=== PATIENT | female | born 1950 | race Caucasian/White ===

== ENCOUNTER 2016-05-20 07:43 | Day surgery (SDC) | payer OTHER ==
[~2016-05-20 07:43] MED LIST: ACETAMINOPHEN 1000MG/100 ML PREMIX IV ONE
[2016-05-20] MEDS ORDERED: ROCURONIUM BROMIDE 50MG/5ML VIAL IV ONE (15:34)
[2016-05-20] MEDS ORDERED: LIDOCAINE 2% MDV (20MG/ML) 20ML VIAL IV ONE (15:34)
[2016-05-20] MEDS ORDERED: NEOSTIGMINE 1 MG/1 ML,10ML VIAL IV ONE (15:34)
[2016-05-20] MEDS ORDERED: ONDANSETRON HCL IV 4 MG/2 ML VIAL IVP ONE (15:34)
[2016-05-20] MEDS ORDERED: KETOROLAC 30 MG/ML VIAL IVP ONE (15:34)
[2016-05-20] MEDS ORDERED: SUCCINYLCHOLINE 20 MG/ML 10ML IVP ONE (15:34)
[2016-05-20] MEDS ORDERED: FENTANYL PF 100MCG/2ML VIAL IV ONE (15:34)
[2016-05-20] MEDS ORDERED: PROPOFOL 10 MG/ML VIAL IV ONE (15:34)
[2016-05-20] MEDS ORDERED: EPHEDRINE SULFATE 50 MG/ML ML IV ONE (15:34)
[2016-05-20] MEDS ORDERED: ROPIVACAINE HCL (NAROPIN) /PF 5MG/ML 20ML VIAL IV ONE ×2 (15:34→15:39)
[2016-05-20] MEDS ORDERED: MIDAZOLAM HCL 2MG/2ML VIAL IV ONE (15:34)
[2016-05-20] MEDS ORDERED: SEVOFLURANE 250 ML INH ONE (15:34)
[2016-05-20] MEDS ORDERED: DEXAMETHASONE 4 MG/ML 1ML VIAL IVP ONE (15:34)
[2016-05-20] MEDS ORDERED: EPINEPHRINE 1 MG/ML AMPUL SQ ONE (15:39)
--- NOTE | 2016-05-21 09:48 | Operative Note ---
DATE OF SURGERY: 05/20/2016. SURGEON: Juan Odom D.O. REFERRING PHYSICIAN: Lucia Jimenes M.D. PREOPERATIVE DIAGNOSIS: RE-TEAR OF THE LEFT ROTATOR CUFF. POSTOPERATIVE DIAGNOSES: RE-TEAR OF THE LEFT ROTATOR CUFF. OPERATIVE PROCEDURES: 1. Arthroscopic repair of the left rotator cuff. 2. Arthroscopic debridement of the bursa and failed suture material of the left shoulder. DESCRIPTION OF PROCEDURE: This 65-year-old female was taken to the operating room and was placed in the supine position on the operating room table. General anesthetic was administered, and the patient was placed in the beach chair position. The left shoulder was prepped with Hibiclens and draped in the usual sterile fashion. A posterior portal was established in the left shoulder. Initial evaluation of the joint demonstrated some degenerative changes of the glenohumeral joint. 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 No evidence of loose joint body or anchor within the joint cavity. The biceps tendon appeared to be normal as did the subscapularis and glenohumeral ligaments. The scope was then removed from the joint and placed in the subacromial space. Subacromial decompression was performed removing scar, and ruptured suture material was easily visualized. We searched the entire bursal area of the humerus and the areas around the repaired cuff where the previous anchors were placed, and I did not see any evidence that an anchor had come out of the bone. Thorough debridement was performed, and again an extensive search for an anchor was undertaken because it was felt that this was seen on the MRI. We did not find a loose anchor, and the sutures were cut and removed. The scar and bursal tissue was also debrided. We debrided the torn cuff and could see the supraspinatus had retracted. The previous side-to- side suture was still tied, but it was very loose. It was also removed. We did some removal of the scar tissue superiorly and were able to mobilize the supraspinatus slightly. We could not reach the articular surface, but we did feel like we could bring it down far enough to try another [id number] suture. In addition to holding that position we decided to place a FiberTape, and a single 4.75 swivel-lock anchor was placed in the tuberosity after debriding that as well. The suture was then placed through the supraspinatus and posterior to the V-type tear which was present. We then used this to put traction on the tendon to bring the supraspinatus down as close to anatomic location as possible. The [id number] stitch was then tied, and this was tied securely together. Subsequently, the TigerTape sutures were placed through a 5.5 swivel-lock anchor which was placed inferior to the 4.75 anchor to secure these sutures to hold the cuff as tightly as possible in approximation. I felt that this was the best that could possibly be made from this retracted tear. The wound was irrigated and suctioned. The instruments were removed and the wounds were closed with 4-0 nylon suture. Sterile dressings were applied with a sling. The patient was taken to the recovery room in satisfactory condition. GROSS PATHOLOGY: This patient had a re-tear of her left rotator cuff. The MRI suggested an anchor had been pulled out of the bone. However, I did not see that and had searched extensively for it. However I was still unable to find any evidence of an anchor which had been pulled out. Multiple sutures, however , were broken, and these were removed as described above. Juan Odom D.O. Date Time Job Number: [id number] MTDD
== END 2016-05-20 11:20 | disposition home or self-care (01) ==
LOC: SUR 07:43
PROVIDERS: ATTEND Orthopaedic Surgery
DX: T85.612A Breakdown (mechanical) of permanent sutures, initial encounter (principal); M75.122 Complete rotator cuff tear or rupture of left shoulder, not specified as traumatic
CPT/HCPCS: 29827; 29823; 64415; 01630; J1885; J2405; J3010; J2795; 01992; J0171; J0330; J2710